=== PATIENT | female | born 2000 | race African-American/Black ===

== ENCOUNTER 2021-12-29 13:01 | Emergency (ER) | payer BC, SELFPAY ==
--- NOTE | ~2021-12-29 | CT_ITS ---
EXAMINATION: CT abdomen pelvis w con DATE: 12/29/2021 16:11 INDICATION: lower abd pain TECHNIQUE: Computed tomography (CT) of the abdomen and pelvis was performed with 100 mL Omnipaque-300 intravenous contrast. Automated exposure control and iterative reconstruction technique were employe d. The dose-length product was 1571.43 mGy-cm. COMPARISON: Pelvic ultrasound, same date. FINDINGS: Lower thorax: Unremarkable Liver: Diffusely low density. Mildly enlarged. Biliary/Gallbladder: Gallbladder is absent. No bile duct dilation. Pancreas: No mass or duct dilation. Spleen: Normal. Adrenals:No mass. Kidneys: No mass, stone, or hydronephrosis. GI tract: No small or large bowel dilation. Normal appendix. Fatty wall infiltration in the ascending and transverse colon. Mesentery/Peritoneum: No ascites, mass, or free air. Retroperitoneum: No mass. Pelvis: Minimal bladder wall thickening and minimal inflammatory change, otherwise the organs are wit hin normal limits. Soft Tissues: Small fat-containing umbilical hernia with minimal inflammation, otherwise the soft tis sues tissues and body wall are unremarkable. Bones: No acute osseous finding. IMPRESSION: Mild hepatomegaly and steatosis. Colonic submucosal fat as can be seen with chronic IBD, obesity, and celiac disease. Small fat-containing umbilical hernia with minimal inflammatory change. Mild bladder wall thickening and inflammation, may reflect cystitis in the appropriate clinical context. Reviewed, dictated and finalized at location K. IMPRESSION: Mild hepatomegaly and steatosis. Colonic submucosal fat as can be seen with chr onic IBD, obesity, and celiac disease. Small fat-containing umbilical hernia wi th minimal inflammatory change. Mild bladder wall thickening and inflammation, may reflect cystitis in the appropriate clinical context.
--- NOTE | ~2021-12-29 | US_ITS ---
EXAMINATION: US pelvic complete w TV DATE: 12/29/2021 14:59 INDICATION: lower abd pain TECHNIQUE: Multiple transabdominal and endovaginal sonographic images of the pelvis were obtained. COMPARISON: None. FINDINGS: Uterus: #1 x 4.0 x 3.4 cm. Endometrial complex measures 3.6 cm. Right Ovary: 2.8 x 2.4 x 1.7 cm. 1.1 cm simple cyst. Vascular flow is present. Left Ovary: 2.3 x 1.7 x 1.7 cm. Vascular flow is present. There is no free fluid in the pelvis. IMPRESSION: 1. Normal pelvic sonogram findings. Reviewed, dictated and finalized at location K.
[2021-12-29 12:57] VITALS: BP 149/83; PULSE 74; RESP 13; TEMP 36.6; O2SAT 99
--- NOTE | 2021-12-29 13:11 | ED.GENADULT ---
HPI - General Adult General Chief complaint: Abdominal Pain Stated complaint: abd pain Source: RN notes reviewed History of Present Illness HPI narrative: Patient presents emerged department from home via EMS for abdominal pain. Patient states symptoms began approximately 2 hours ago. States pain is located bilateral lower abdomen does not radiate described as sharp and stabbing. States that has been associate with nausea and vomiting. Patient denies any fevers or chills chest pain shortness of breath diarrhea or any other symptoms. States she not taking pain medication for the symptoms at home. Patient was given Zofran by EMS in route. Patient denies any vaginal bleeding or discharge Related Data Allergies Allergy/AdvReac Type Severity Reaction Status Date / Time No Known Allergies Allergy Verified 12/29/21 13:01 Review of Systems Review of Systems: Gen.: Denies fevers or chills ENT: Denies congestion Respiratory: Denies shortness of breath or cough CV: Denies chest pain or palpitations GI: HPI denies burning, urgency, frequency or hematuria Musculoskeletal: Denies back pain or muscle pain Neuro: Denies numbness, tingling, weakness or focal weakness Skin: Denies rash Except as documented, all other systems reviewed and negative [facility] Past Medical History Medical History (Updated 12/29/21 @ 17:37 by Lauro Trent DO) Patient denies significant medical history Social History Social History (Updated 12/29/21 @ 13:12 by Lauro Trent DO) Smoking status: Never smoker Exam Narrative: APPEARANCE: No acute distress, nontoxic, resting in bed HEENT: Normocephalic, atraumatic, OMM RESPIRATORY: No respiratory distress, clear to auscultation bilaterally with no rhonchi wheezing or rales CARDIOVASCULAR: RRR s murmur ABDOMINAL: Soft nondistended tender palpation right lower quadrant left lower quadrant no tenderness right upper quadrant left upper quadrant no rebound or guarding MUSCULOSKELETAl: Moves all extremities. No clubbing, cyanosis or edema. NEURO: Awake and alert. Following commands, speech normal, no focal deficits SKIN:: Warm, dry. Normal Color PSYCHIATRIC: Normal affect/mood Course Course Emergency Course: Patient states that they are feeling much better at this time. States abdominal pain has resolved. Repeat abdominal exam shows the patient's abdomen to be soft and nontender. Discussed with patient results of workup and diagnosis. Discussed need for follow-up with primary care physician, reasons to return to the emergency department in proper use of medication. Patient understands and agrees to current treatment plan Vital Signs Vital signs: Vital Signs Temperature 97.9 F 12/29/21 12:57 Pulse Rate 74 12/29/21 12:57 Respiratory Rate 13 12/29/21 12:57 Blood Pressure 149/83 H 12/29/21 12:57 Pulse Oximetry 99 12/29/21 12:57 Oxygen Delivery Room Air 12/29/21 12:57 Temperature 97.9 F 12/29/21 12:57 Pulse Rate 72 12/29/21 15:40 Respiratory Rate 19 12/29/21 15:40 Blood Pressure 148/90 H 12/29/21 15:40 Pulse Oximetry 99 12/29/21 15:40 Oxygen Delivery Room Air 12/29/21 12:57 Medical Decision Making MDM Narrative Medical decision making narrative: Patient's abdomen is soft without significant pain or signs of surgical abdomen on serial exams. Lab and x-ray evaluations are reviewed and patient is felt to be a reasonable candidate for outpatient management. Patient was instructed as to limitations of x-ray and laboratory evaluation and encouraged to return to ED or primary physician for repeat exam in 12 hours if continued or worsening pain Vital Signs Vital Signs: Vital Signs Temperature 97.9 F 12/29/21 12:57 Pulse Rate 74 12/29/21 12:57 Respiratory Rate 13 12/29/21 12:57 Blood Pressure 149/83 H 12/29/21 12:57 Pulse Oximetry 99 12/29/21 12:57 Oxygen Delivery Room Air 12/29/21 12:57 Temperature 97.9 F 12/29/21 12:57 Puls
[2021-12-29 13:30] LABS: Basophils Absolute Auto 0.1 K/mm3 (0.0-0.1); Basophils Percent Auto 0.6 % (0.2-1.2); Eosinophils Absolute Auto 0.1 K/mm3 (0-0.3); Hematocrit 36.9 % (37.0-47.0); Hemoglobin 11.6 g/dL (12.0-15.0); Immature Granulocyte Absolute 0.08 K/mm3 (0.00-0.031); Immature Granulocyte Percent A 0.8 % (0-0.5); Lymphocytes Absolute Auto 2.03 K/mm3 (0.9-3.2); Lymphocytes Percent Auto 21.2 % (18.3-44.2); Mean Corpuscular HGB Conc 31.4 g/dl (32-36); Mean Corpuscular Hemoglobin 25.9 pg (26-34); Mean Corpuscular Volume 82.4 fl (80-100); Mean Platelet Volume 10.5 fl (7.4-10.4); Monocytes Absolute Auto 0.6 K/mm3 (0.1-0.6); Monocytes Percent Auto 6.4 % (2.6-8.5); Neutrophils Absolute Auto 6.7 K/mm3 (1.3-6.7); Platelet Count Result 215 k/mm3 (150-375); Red Blood Count 4.48 M/mm3 (4.2-5.4); Red Cell Distribution Width 13.4 % (11.5-14.5); White Blood Count 9.6 K/mm3 (4.5-10.0)
[2021-12-29] MEDS: SODIUM CHLORIDE 0.9% IV 1,000 ML 999 ML IV CONT (13:30)
[2021-12-29] MEDS: KETOROLAC 30 MG/ML VIAL (*BKC) IV PUSH (13:30)
[2021-12-29 13:38] LABS: Alanine Aminotransferase 31 U/L (6-35); Albumin Level 4.1 g/dL (3.5-5.1); Alkaline Phosphatase 84 U/L (38-126); Anion Gap 6 mmol/L (8-16); Aspartate Amino Transferase 29 U/L (14-36); Bilirubin,Total 0.2 mg/dL (0.2-1.3); Blood Urea Nitrogen 12 mg/dL (7-17); Calcium 8.6 mg/dL (8.4-10.2); Carbon Dioxide 25 mmol/L (22-30); Chloride 104 mmol/L (98-107); Estimated CRCL calculation 140 ml/min; Estimated Glomerular Filt Rate > 60; Glucose 128 mg/dL (65-110); Lipase 72 U/L (23-300); Potassium 3.7 mmol/L (3.4-5.0); Sodium 135 mmol/L (137-145)
[2021-12-29 13:41] LABS: Appearance Urine Clear (Clear); Bilirubin Urine Negative (Negative); Blood Urine Negative (Negative); Color Urine Yellow (Yellow); Glucose Urine UA Negative (Negative); Ketones Urine Negative (Negative); Leukocyte Esterase Ur Negative LEU/UL (Negative); Nitrate Urine Negative (Negative); Protein Urine Negative (Negative); Specific Grav Ur 1.025 (1.001-1.035); Urobilinogen Urine 0.2 mg/dL (<2.0)
[2021-12-29 14:04] LABS: Add Urine Microscopic? YES; Mucus Urine Rare /lpf; RBC Urine 0-2 /hpf (0-2); Squamous Epithelial Cell Urine Rare /hpf (Few); WBC Urine 0-3 /hpf
[2021-12-29 15:40] VITALS: BP 148/90; PULSE 72; RESP 19; O2SAT 99
[2021-12-29 16:30] VITALS: BP 123/87; PULSE 74; RESP 19; O2SAT 97
[2021-12-29] MEDS: DICYCLOMINE HCL INJ 20 MG/2 ML VIAL IM (17:13)
[2021-12-29 17:30] VITALS: BP 148/88; PULSE 82; RESP 13; O2SAT 99
[2021-12-29 18:00] VITALS: BP 139/79; PULSE 99; RESP 16; O2SAT 98
== END 2021-12-29 18:00 | disposition home or self-care (01) ==
PROVIDERS: Emergency Provider Emergency Medicine
DX: R10.32 Left lower quadrant pain (principal); R10.31 Right lower quadrant pain; R11.2 Nausea with vomiting, unspecified; K76.0 Fatty (change of) liver, not elsewhere classified; R16.0 Hepatomegaly, not elsewhere classified
CPT/HCPCS: 36415; 74177; 76830; 76856; 80053; 81001; 81025; 83690; 85025; 96361; 96372; 96374; 99284; J0500; J1885; J7030; Q9967